=== PATIENT | female | born 2000 | race Two or more races ===

== ENCOUNTER 2022-12-24 09:24 | Outpatient (CLI) | payer OTHER | END 2022-12-24 10:43 | disposition home or self-care (01) | LOC: PRENATAL 09:24 | PROVIDERS: ATTEND Obstetrics & Gynecology Maternal & Fetal Medicine | DX: O36.80X0 Pregnancy with inconclusive fetal viability, not applicable or unspecified (principal); O44.00 Complete placenta previa NOS or without hemorrhage, unspecified trimester; Z14.8 Genetic carrier of other disease; Z3A.13 13 weeks gestation of pregnancy ==

== ENCOUNTER 2023-02-03 08:53 | Outpatient (CLI) | payer OTHER | END 2023-02-03 10:17 | disposition home or self-care (01) | LOC: PRENATAL 08:53 | PROVIDERS: ATTEND Obstetrics & Gynecology Maternal & Fetal Medicine | DX: O35.9XX0 Maternal care for (suspected) fetal abnormality and damage, unspecified, not applicable or unspecified (principal); O35.3XX0 Maternal care for (suspected) damage to fetus from viral disease in mother, not applicable or unspecified; O44.00 Complete placenta previa NOS or without hemorrhage, unspecified trimester; Z3A.19 19 weeks gestation of pregnancy ==

== ENCOUNTER 2023-04-10 09:13 | Outpatient (CLI) | payer OTHER | END 2023-04-10 10:47 | disposition home or self-care (01) | LOC: PRENATAL 09:13 | PROVIDERS: ATTEND Obstetrics & Gynecology Maternal & Fetal Medicine | DX: O26.849 Uterine size-date discrepancy, unspecified trimester (principal); O44.00 Complete placenta previa NOS or without hemorrhage, unspecified trimester; O36.5990 Maternal care for other known or suspected poor fetal growth, unspecified trimester, not applicable or unspecified; Z3A.28 28 weeks gestation of pregnancy ==

== ENCOUNTER 2023-05-21 09:41 | Outpatient (CLI) | payer OTHER | END 2023-05-21 09:42 | disposition home or self-care (01) | LOC: PRENATAL 09:41 | PROVIDERS: ATTEND Obstetrics & Gynecology Maternal & Fetal Medicine | DX: O26.849 Uterine size-date discrepancy, unspecified trimester (principal); O36.8199 Decreased fetal movements, unspecified trimester, other fetus; O36.5990 Maternal care for other known or suspected poor fetal growth, unspecified trimester, not applicable or unspecified; Z3A.34 34 weeks gestation of pregnancy ==

== ENCOUNTER 2023-06-12 14:45 | Inpatient (IN) | payer OTHER ==
[~2023-06-12] VITALS: Ht 167.6 cm; Wt 2.7 kg
[2023-06-16 08:54] LABS: URINE APPEARANCE Cloudy; URINE BILIRRUBIN Negative (NEGATIVE); URINE BLOOD Negative; URINE COLOR Yellow; URINE GLUCOSE Negative (NEGATIVE); URINE LEUKOCYTE Trace; URINE NITRATE Negative; URINE PROTEIN Negative (NEGATIVE)
[2023-06-16 08:56] LABS: URINE BACTERIA 871.8 uL (0.0-1933); URINE EPITHELIAL CELLS 56.7 uL (0.0-38.8); URINE WBC 53.4 uL (0.0-23.2)
[2023-06-16 09:03] LABS: HEMATOCRIT 31.8 % (36.0-45.00); HEMOGLOBIN 10.3 g/dL (12.0-15.00); MEAN CELL VOLUME 82.8 fL (80.00-100.00); MEAN CORPUSCULAR HEMOGLOBIN 26.7 pg (27.00-32.0); MEAN CORPUSCULAR HGB CONC 32.2 g/dl (32.0-36.0); PLATELET COUNT 308 K/uL (150-450); RED BLOOD COUNT 3.85 M/uL (4.00-6.00)
[2023-06-16 09:28] LABS: INR < 0.93; PARTIAL THROMBOPLASTIN TIME 26.3 SECONDS (22.0-34.0); PROTHROMBIN TIME 9.6 SECONDS (9.0-11.5)
[2023-06-16 09:37] LABS: ALBUMIN 2.7 gm/dL (3.4-5.0); BILIRUBIN TOTAL 0.22 mg/dL (0.3-1.2); CALCIUM 9.4 mg/dL (8.5-10.1); CREATININE SERUM 0.5 mg/dL (0.55-1.02); GFR 151.58; GLOBULINA 3.6 G/DL (2.4-3.5); POTASSIUM 4.03 mEq/L (3.5-5.1); TOTAL PROTEIN 6.3 gm/dL (6.4-8.2)
[2023-06-16 09:51] LABS: URINE RBC 1.5 uL (0.0-20.8)
[2023-06-16] MEDS ORDERED: PRENATAL TABLE1 EAC1 (12:29)
[2023-06-16] MEDS ORDERED: SINGULAIR4 M1 (12:29)
[2023-06-16] MEDS ORDERED: CLARITIN5 MG/5 ML PO (12:29)
[2023-06-16 21:44] LABS: ABG PH 7.165 (7.35-7.45); ABG PO2 23.6 mmHg (80-100); ABG pCO2 57.8 mmHg (35-45)
[2023-06-16 21:45] LABS: BASE EXCESS -8.9 mmol/l; BICARBONATE 20.4 mmol/l (23-25); SaO2 25.4 %; Tco2 22.2 mmol/l; o2 21 %
[2023-06-17 07:36] LABS: HEMATOCRIT 30.6 % (36.0-45.00); HEMOGLOBIN 10.3 g/dL (12.0-15.00); MEAN CELL VOLUME 82.3 fL (80.00-100.00); MEAN CORPUSCULAR HEMOGLOBIN 27.8 pg (27.00-32.0); MEAN CORPUSCULAR HGB CONC 33.7 g/dl (32.0-36.0); PLATELET COUNT 258 K/uL (150-450); RED BLOOD COUNT 3.72 M/uL (4.00-6.00); RED CELL DISTRIBUTION WIDTH 15.7 % (11.5-14.5)
== END 2023-06-18 16:58 | disposition home or self-care (01) | DRG 788 ==
LOC: LDR 06-16 07:32 → OB/GYN 06-16 07:32
PROVIDERS: ADMIT Obstetrics & Gynecology; ATTEND Obstetrics & Gynecology
PROC: 3E033VJ Introduction of Other Hormone into Peripheral Vein, Percutaneous Approach (ICD-10-PCS; 2023-06-16)
PROC: 3E0P7VZ Introduction of Hormone into Female Reproductive, Via Natural or Artificial Opening (ICD-10-PCS; 2023-06-16)
PROC: 4A1HXCZ Monitoring of Products of Conception, Cardiac Rate, External Approach (ICD-10-PCS; 2023-06-16)
PROC: 10D00Z1 Extraction of Products of Conception, Low, Open Approach (ICD-10-PCS; principal; 2023-06-16 17:30)
DX: O36.5930 Maternal care for other known or suspected poor fetal growth, third trimester, not applicable or unspecified (principal); O99.824 Streptococcus B carrier state complicating childbirth; O36.8330 Maternal care for abnormalities of the fetal heart rate or rhythm, third trimester, not applicable or unspecified; Z3A.38 38 weeks gestation of pregnancy; Z37.0 Single live birth

== ENCOUNTER → 2024-08-06 09:43 | Outpatient (CLI) | payer OTHER ==
[~2024-08-06 09:43] MED LIST: BENADRYL25 MG PO; CLARITIN5 MG/5 ML PO; PRENATAL + DHA1 EAC1 PO; PRENATAL TABLE1 EAC1; SINGULAIR4 M1; TYLENOL325 MG PO
== END | disposition home or self-care (01) ==
LOC: PRENATAL 09:43
PROVIDERS: ATTEND Obstetrics & Gynecology Maternal & Fetal Medicine
DX: O36.8199 Decreased fetal movements, unspecified trimester, other fetus (principal); Z3A.35 35 weeks gestation of pregnancy

== ENCOUNTER 2024-08-23 09:30 | Inpatient (IN) | payer OTHER ==
[~2024-08-23] VITALS: Ht 167.6 cm; Wt 62.6 kg
[~2024-08-23 09:30] MED LIST changes: -BENADRYL25 MG PO; -PRENATAL + DHA1 EAC1 PO; -TYLENOL325 MG PO
[2024-08-25 11:59] LABS: HEMATOCRIT 30.5 % (36.0-45.00); MEAN CELL VOLUME 72.6 fL (80.00-100.00); MEAN CORPUSCULAR HEMOGLOBIN 23.3 pg (27.00-32.0); MEAN CORPUSCULAR HGB CONC 32.1 g/dl (32.0-36.0); PLATELET COUNT 214 K/uL (150-450); RED BLOOD COUNT 4.19 M/uL (4.00-6.00)
[2024-08-25 12:01] LABS: PH,URINE 6.5 (5.0-8.0); URINE APPEARANCE Cloudy; URINE BILIRRUBIN Negative (NEGATIVE); URINE BLOOD Negative; URINE COLOR Yellow; URINE GLUCOSE Negative (NEGATIVE); URINE KETONE Trace (NEGATIVE); URINE LEUKOCYTE Large; URINE NITRATE Negative; URINE PROTEIN Trace (NEGATIVE)
[2024-08-25 12:05] LABS: URINE BACTERIA 5822.3 uL (0.0-1933); URINE EPITHELIAL CELLS 59.3 uL (0.0-38.8); URINE RBC 4.8 uL (0.0-20.8); URINE WBC 765.3 uL (0.0-23.2)
[2024-08-25] MEDS ORDERED: TYLENOL325 MG PO (12:12)
[2024-08-25] MEDS ORDERED: BENADRYL25 MG PO (12:12)
[2024-08-25 12:30] LABS: HEMOGLOBIN 9.8 g/dL (12.0-15.00); RED CELL DISTRIBUTION WIDTH 26.3 % (11.5-14.5)
[2024-08-25 12:31] LABS: INR 0.94; PARTIAL THROMBOPLASTIN TIME 27.8 SECONDS (22.0-34.0); PROTHROMBIN TIME 10.3 SECONDS (9.0-11.5)
[2024-08-25 12:50] LABS: ALBUMIN 2.8 gm/dL (3.4-5.0); BILIRUBIN TOTAL 0.29 mg/dL (0.3-1.2); CREATININE SERUM 0.5 mg/dL (0.55-1.02); GFR 150.33; GLOBULINA 3.6 G/DL (2.4-3.5); POTASSIUM 3.89 mEq/L (3.5-5.1); TOTAL PROTEIN 6.4 gm/dL (6.4-8.2)
[2024-08-25 13:08] LABS: RH POSITIVE
[2024-08-30 15:15] VITALS: BP 105/69
[2024-08-30] MEDS ORDERED: PRENATAL + DHA1 EAC1 PO (15:23)
[2024-08-30] MEDS ORDERED: CEFAZOLIN SODIUM 1,000 MG VIAL ONE (16:09)
[2024-08-30] MEDS ORDERED: ERYTHROMYCIN BASE OPHT 1GM EACH TUBE OP ONE (17:02)
[2024-08-30] MEDS ORDERED: OXYTOCIN 10 UNITS/ML VIAL ONE ×2 (17:02→22:23)
[2024-08-30] MEDS ORDERED: MORPHINE SULFATE 4 MG/ML CARTRIDGE IV PRN (19:15)
[2024-08-30] MEDS ORDERED: OXYTOCIN 1,000 ML IV SCH (19:15)
[2024-08-30] MEDS ORDERED: RINGERS SOLUTION,LACTATED 1,000 ML IV SCH (19:15)
[2024-08-30] MEDS ORDERED: ONDANSETRON HCL 2 MG/ML VIAL IV PRN (19:15)
[2024-08-30] MEDS ORDERED: METOCLOPRAMIDE HCL 5 MG/ML VIAL IV NR (20:00)
[2024-08-30] MEDS ORDERED: MORPHINE SULFATE 4 MG/ML VIAL IV ONE ×2 (20:20→21:50)
[2024-08-30] MEDS ORDERED: SIMETHICONE 125 MG CAPSULE PO SCH (21:00)
[2024-08-30] MEDS ORDERED: SENNOSIDES 1 TAB TABLET PO SCH (21:00)
[2024-08-30] MEDS ORDERED: METOCLOPRAMIDE HCL 5 MG/ML VIAL ONE (22:23)
[2024-08-30 23:00] VITALS: BP 108/67
[2024-08-31] MEDS ORDERED: KETOROLAC TROMETHAMINE 30 MG VIAL IV SCH
[2024-08-31 00:56] VITALS: BP 114/75
[2024-08-31] MEDS ORDERED: ACETAMINOPHEN 325 MG TABLET PO SCH (06:00)
[2024-08-31 06:22] LABS: HEMATOCRIT 29.4 % (36.0-45.00); HEMOGLOBIN 9.5 g/dL (12.0-15.00); MEAN CELL VOLUME 72.9 fL (80.00-100.00); MEAN CORPUSCULAR HEMOGLOBIN 23.5 pg (27.00-32.0); MEAN CORPUSCULAR HGB CONC 32.2 g/dl (32.0-36.0); PLATELET COUNT 190 K/uL (150-450); RED BLOOD COUNT 4.04 M/uL (4.00-6.00)
[2024-08-31 08:12] VITALS: BP 107/76
[2024-08-31] MEDS ORDERED: IBUprofen 800 MG TABLET PO SCH (09:00)
[2024-08-31 13:44] VITALS: BP 110/65
[2024-08-31 16:03] VITALS: BP 105/71
[2024-08-31 20:10] VITALS: BP 110/72
[2024-09-01] VITALS: BP 101/67
[2024-09-01 07:49] VITALS: BP 109/71
[2024-09-01] MEDS ORDERED: IRON FUM,PS/FOLIC/BCOMP,C NO.9 1 CAP CAPSULE PO SCH (09:00)
[2024-09-01 13:20] VITALS: BP 112/73
[2024-09-01 16:13] VITALS: BP 114/78
[2024-09-02] VITALS: BP 104/67
[2024-09-02] MEDS ORDERED: IBU800 MG PO (08:03)
[2024-09-02] MEDS ORDERED: COLACE100 MG PO (08:03)
[2024-09-02] MEDS ORDERED: SIMETHICONE125 M1 PO (08:04)
[2024-09-02 08:24] VITALS: BP 114/79
== END 2024-09-02 15:05 | disposition home or self-care (01) | DRG 785 ==
LOC: OB/GYN 08-30 09:30 → O/R 08-30 15:50 → OB/GYN 08-30 15:50
PROVIDERS: ADMIT Obstetrics & Gynecology; ATTEND Obstetrics & Gynecology
PROC: 0UB70ZZ Excision of Bilateral Fallopian Tubes, Open Approach (ICD-10-PCS; 2024-08-30)
PROC: 4A1HXCZ Monitoring of Products of Conception, Cardiac Rate, External Approach (ICD-10-PCS; 2024-08-30)
PROC: 10D00Z1 Extraction of Products of Conception, Low, Open Approach (ICD-10-PCS; principal; 2024-08-30 12:30)
DX: O34.211 Maternal care for low transverse scar from previous cesarean delivery (principal); O99.824 Streptococcus B carrier state complicating childbirth; Z3A.38 38 weeks gestation of pregnancy; Z37.0 Single live birth; Z30.2 Encounter for sterilization